=== PATIENT | female | born 1955 | race Caucasian/White ===

== ENCOUNTER 2018-02-12 06:39 | Day surgery (SDC) | payer MEDICAID ==
[~2018-02-12] VITALS: Ht 160 cm; Wt 75.5 kg
[2018-02-12] MEDS ORDERED: LIDOCAINE 2% 30 ML JELLY TP ONE (06:40)
[2018-02-12] MEDS ORDERED: BENZOCAINE 20% 50 MCG/SPRAY 57 GM TP ONE (06:40)
[2018-02-12] MEDS ORDERED: ALBUTEROL SULFATE 2.5 MG/0.5 ML NEB SOLUTION NEB ONE (06:40)
[2018-02-12] MEDS ORDERED: SODIUM CHLORIDE 0.9% 1,000 ML IV ONE ×2 (07:00→07:05)
[2018-02-12] MEDS ORDERED: MIDAZOLAM HCL 2 MG/2 ML VIAL ONE (07:51)
[2018-02-12] MEDS ORDERED: FentaNYL CITRATE-PF 100 MCG/2 ML VIAL ONE (07:52)
[2018-02-12 07:53] LABS: GLUCOMETER DEV NAME(LOC) SDS 5; GLUCOSE,POINT OF CARE 145 MG/DL (70-110)
[2018-02-12] MEDS ORDERED: BECL10.62 IH (07:58)
[2018-02-12] MEDS ORDERED: AMLO-511 PO (07:58)
[2018-02-12] MEDS ORDERED: HYDR25TA PO (07:58)
[2018-02-12] MEDS ORDERED: CETI-290 PO (07:58)
[2018-02-12] MEDS ORDERED: METF-960 PO (07:58)
[2018-02-12] MEDS ORDERED: ALBU8.5H8 IH (07:58)
[2018-02-12] MEDS ORDERED: MONT10TA21 PO (07:58)
[2018-02-12] MEDS ORDERED: MethylPREDNISolone SOD SUCC 125 MG/2 ML VIAL ONE (08:43)
[2018-02-12] MEDS ORDERED: MethylPREDNISolone SOD SUCC 125 MG/2 ML VIAL IVP ONE (08:45)
[2018-02-12] MEDS ORDERED: OXYGEN THERAPY IH SCH (20:00)
== END 2018-02-12 10:15 | disposition home or self-care (01) ==
LOC: SURGERY 06:39
PROVIDERS: ATTEND Internal Medicine Critical Care Medicine
DX: J38.4 Edema of larynx (principal); B37.0 Candidal stomatitis; J98.09 Other diseases of bronchus, not elsewhere classified; J98.8 Other specified respiratory disorders; E07.89 Other specified disorders of thyroid; J45.998 Other asthma; I10 Essential (primary) hypertension; E11.9 Type 2 diabetes mellitus without complications; M16.12 Unilateral primary osteoarthritis, left hip; E78.00 Pure hypercholesterolemia, unspecified; Z91.018 Allergy to other foods; Z79.84 Long term (current) use of oral hypoglycemic drugs; Z98.890 Other specified postprocedural states; Z79.899 Other long term (current) drug therapy
CPT/HCPCS: 31623; 31624; 71045; 82962; 87015; 87070; 87205; 87206; 87220; 88108; 88312; J2250; J2930; J3010; J7030